=== PATIENT | female | born 1995 | race Caucasian/White ===

== ENCOUNTER 2017-04-02 12:52 | Emergency (ER) | payer BC ==
[~2017-04-02] VITALS: Ht 160 cm; Wt 41.0 kg
[2017-04-02 12:58] VITALS: Ht 160 cm; Wt 41.0 kg
[2017-04-02] MEDS ORDERED: SOD CHLORIDE 0.9% 500 ML IV STA (14:00)
[2017-04-02 14:28] LABS: ADD SCAN DIFF NO
[2017-04-02 14:31] LABS: ABNORMAL IP MESSAGE 1; HEMATOCRIT 34.3 % (37.0-47.0); HEMOGLOBIN 12.2 g/dl (12.0-16.0); MEAN CORPUSCULAR HEMOGLOBIN 31.4 pg (29.0-33.0); MEAN CORPUSCULAR HGB CONC 35.6 g/dl (32.0-37.0); MEAN CORPUSCULAR VOLUME 88.4 fl (82.0-101.0); MEAN PLATELET VOLUME 9.5 fl (7.4-10.4); PLATELET COUNT 301 10^3/UL (140-415); RED BLOOD COUNT 3.88 10^6/ul (4.20-5.40); RED CELL DISTRIBUTION WIDTH 12.4 % (11.5-14.5)
[2017-04-02 14:55] LABS: ADD UMIC NO; URINE BILIRUBIN (Dip) NEGATIVE (NEGATIVE); URINE BLOOD (Dip) NEGATIVE (NEGATIVE); URINE COLOR LT. YELLOW (YELLOW); URINE GLUCOSE (Dip) NEGATIVE (NEGATIVE); URINE KETONES (Dip) NEGATIVE (NEGATIVE); URINE LEUKOCYTE ESTERASE (Dip) NEGATIVE (NEGATIVE); URINE NITRITE (Dip) NEGATIVE (NEGATIVE); URINE TOTAL PROTEIN (Dip) NEGATIVE (NEGATIVE); URINE UROBILINOGEN (Dip) 0.2 E.U./dL (0.1-1.0)
[2017-04-02] MEDS ORDERED: ONDANSETRON 4 MG INJ IV STA (14:58)
[2017-04-02 15:16] LABS: POTASSIUM 3.6 mmol/L (3.5-5.1)
[2017-04-02 15:18] LABS: CREATININE 0.59 mg/dl (0.44-1.00)
[2017-04-02 15:19] LABS: CALCIUM 9.4 mg/dl (8.4-10.2)
--- NOTE | 2017-04-02 15:23 | ERA ---
ER Documentation Chief Complaint Date/Time DATE: 04/02/17 TIME: 15:22 Chief Complaint HYPOGLYCEMIA SHAKEY FEELING WEAK HPI 21-year-old female who presents emergency room with hypoglycemia. She is an insulin-dependent diabetic. She states that she has been moving recently and has not been eating on a regular basis. She took her Lantus at around 11 AM. Shortly after she started to feel shaky. Accu-Chek at home was in the 30s. She took glucagon and then vomited. The patient has an Accu-Chek of 60 upon arrival. Recently she denies any fevers chills or illness. She does describe generalized weakness. No dysuria urgency or frequency. She denies headache, rash or neck stiffness. ROS All systems reviewed and are negative except as per history of present illness. Medications Home Meds Active Scripts Ondansetron (Ondansetron Odt) 4 Mg Tab.rapdis, 4 MG PO Q6H Y for NAUSEA AND/OR VOMITING, #10 TAB Prov:FOUZIA NIX MD 04/02/17 Allergies Allergies: Coded Allergies: No Known Allergy (Unverified , 04/02/17) PMhx/Soc History of Surgery: No Anesthesia Reaction: No Hx Neurological Disorder: No Hx Respiratory Disorders: No Hx Cardiac Disorders: No Hx Psychiatric Problems: No Hx Miscellaneous Medical Probl: Yes (DM) Hx Alcohol Use: No Hx Substance Use: No Hx Tobacco Use: No Smoking Status: Never smoker FmHx Family History: diabetes Physical Exam Vitals Vital Signs Date Time Temp Pulse Resp B/P Pulse Ox O2 Delivery O2 Flow Rate FiO2 04/02/17 18:15 98.1 75 18 102/65 100 Room Air 04/02/17 14:42 98.4 91 18 96/72 100 Room Air 04/02/17 12:58 97.3 130 20 124/77 100 Physical Exam General: Well developed, well nourished, no acute distress Head: Normocephalic, atraumatic. Eyes: Pupils equally reactive, EOM intact ENT: Moist mucous membranes Neck: Supple, no lymphadenopathy Respiratory: Lungs clear bilaterally, no distress Cardiovascular: RRR, no murmurs, rubs, or gallops Abdominal: Soft, non-tender, non-distended, no peritoneal signs : Deferred MSK: No edema, no unilateral swelling, 5/5 strength Neurologic: Alert and oriented, moving all extremities, normal speech, no focal weakness, no cerebellar signs, no meningismus Skin: No rash Psych: Normal mood Result Diagram: 04/02/17 1700 04/02/17 1400 Results 24 hrs Laboratory Tests Test 04/02/17 12:57 04/02/17 14:00 04/02/17 14:20 04/02/17 14:24 Bedside Glucose 61mg/dL 143mg/dL White Blood Count 25.910^3/ul Red Blood Count 3.8810^6/ul Hemoglobin 12.2g/dl Hematocrit 34.3% Mean Corpuscular Volume 88.4fl Mean Corpuscular Hemoglobin 31.4pg Mean Corpuscular Hemoglobin Concent 35.6g/dl Red Cell Distribution Width 12.4% Platelet Count 28233^3/UL Mean Platelet Volume 9.5fl Neutrophils % 84.0% Band Neutrophils % 6.0% Lymphocytes % 3.0% Monocytes % 7.0% Nucleated Red Blood Cells % 1.0/100WBC Neutrophils # 23.310^3/ul Lymphocytes # 2.610^3/ul Platelet Estimate PLT APPEAR ADEQUATE Sodium Level 142mmol/L Potassium Level 3.6mmol/L Chloride Level 103mmol/L Carbon Dioxide Level 25mmol/L Anion Gap 18 Blood Urea Nitrogen 16mg/dl Creatinine 0.59mg/dl Glucose Level 121mg/dl Calcium Level 9.4mg/dl Serum HCG, Qualitative NEGATIVE Urine Color LT. YELLOW Urine Clarity CLEAR Urine pH 5.5 Urine Specific [place] <=1.005 Urine Ketones NEGATIVE Urine Nitrite NEGATIVE Urine Bilirubin NEGATIVE Urine Urobilinogen 0.2 E.U./dL Urine Leukocyte Esterase NEGATIVE Urine Hemoglobin NEGATIVE Urine Glucose NEGATIVE% Urine Total Protein NEGATIVE Test 04/02/17 15:40 04/02/17 17:00 04/02/17 17:20 Lactic Acid Level 1.6mmol/L 1.1mmol/L White Blood Count 18.310^3/ul Red Blood Count 3.7910^6/ul Hemoglobin 11.5g/dl Hematocrit 33.7% Mean Corpuscular Volume 88.9fl Mean Corpuscular Hemoglobin 30.3pg Mean Corpuscular Hemoglobin Concent 34.1g/dl Red Cell Distribution Width 12.7% Platelet Count 69199^3/UL Mean Platelet Volume 10.1fl Neutrophils % 89.1% Lymphocytes % 7.9% Monocytes % 2.5% Eosinophils % 0.1% Basophils % 0.2% Nucleated Red Blood Cells % 0.0/100WBC Neutrophils # 16.310^3/ul Lymphocytes # 1.410^3/ul Monocytes # 0.510^3/ul Eosinophils # 0.010^3/ul Basophils # 0.010^3/ul Nucleated Red Blood Cells # 0.010^3/ul Current Medications Medications (Trade) Dose Ordered Sig/Bushra Route PRN Reason Start Time Stop Time Status Last Admin Dose Admin Sodium Chloride (NS) 500 ml @ 500 mls/hr Q1H STAT IV 04/02/17 14:00 04/02/17 14:59 DC 04/02/17 14:13 Ondansetron HCl (Zofran Inj) 4 mg ONCE STAT IV 04/02/17 14:58 04/02/17 14:59 DC 04/02/17 15:03 Sodium Chloride (NS) 1,270 ml BOLUS OVER 2 HOURS STAT IV* 04/02/17 15:24 04/02/17 15:28 DC 04/02/17 15:44 Procedures/MDM EKG, MONITORS, & DIAGNOSTIC IMAGING: Chest x-ray: I reviewed and interpreted a 1 view of the chest Mediastinum: No enlargement Cardiac silhouette: No cardiomegaly Airspace: Clear lung [place] bilaterally without evidence of pneumothorax Bones: No evidence of fracture LAB INTERPRETATION: Leukocytosis that is improving. No anemia. Normal lactic acid, normal electrolytes, normal urinalysis, negative hCG MEDICAL DECISION MAKING: The patient presents with hypoglycemia likely secondary to poor complex carbohydrate intake. The patient does take long-acting insulin. The patient does report generalized fatigue and malaise, low concern for infectious process as the patient is extremely well-appearing in the emergency room. She does not have focal signs or symptoms. However, the patient wishes to have laboratory testing. ER COURSE: The patient has significant leukocytosis. This is possibly secondary to stress response given that the patient does not have any other signs of infectious process. However, given her diabetes I believe that further investigation was warranted. Blood cultures been taking, urinalysis is negative, lactic acid is normal, influenza is normal, chest x-ray is normal. She has no clinical signs of serious bacterial infection or meningitis. The patient was given fluids and a repeat CBC was sent. The patient's CBC shows improved WBC count. This is possibly related to the dehydration, hemoconcentration and/or stress response. I even spoke to a pathologist, Dr. Mcdaniel and he was kind enough to review the patient's blood on a slide. He states this is consistent with leukocytosis alone, no evidence of malignancy or hemolysis. No immature cells. At this time the patient's leukocytosis is isolated and improving. Given that it is isolated and the patient is otherwise extremely well-appearing in the emergency department with normal lactic acid I do not believe that inpatient hospitalization is required. Blood cultures been sent. This is possibly stress response versus viral process. I kept the patient and/or family informed of laboratory and diagnostic imaging results throughout the emergency room course. DISPOSITION PLAN: We discussed follow up with the patient's primary care doctor within 24 to 48 hours as needed. We also discussed return to the emergency room for worsening symptoms or worsening condition. Outpatient referral: [None required] Discharge Medications: Zofran Departure Diagnosis: Primary Impression: Hypoglycemia Additional Impression: Leukocytosis Qualified Code: D72.829 - Leukocytosis, unspecified type Condition: Stable FOUZIA NIX MD April 02, 2017 15:23
[2017-04-02] MEDS ORDERED: SODIUM CHLORIDE 0.9% 1L BAG IV* STA (15:24)
[2017-04-02 15:50] LABS: LYMPHOCYTES # 2.6 10^3/ul (0.8-2.9); NEUTROPHIL # 23.3 10^3/ul (1.6-7.5)
[2017-04-02 15:51] LABS: PLATELET ESTIMATE PLT APPEAR ADEQUATE
--- NOTE | 2017-04-02 16:18 | RADRPT ---
PROCEDURE: XR CHEST AP PORTABLE CLINICAL INDICATION: Weakness TECHNIQUE: Single frontal view of the chest COMPARISON: None. FINDINGS: The cardiomediastinal silhouette and pulmonary vasculature are normal. The lungs are clear. No consolidation, effusion, or pneumothorax. The osseous structures are unremarkable. IMPRESSION: No acute cardiopulmonary process. RPTAT:PP .Mil Trujillo MD, MD Date Time Electronically viewed and signed by .Mil Trujillo MD, on 04/02/2017 16:17 .V/
[2017-04-02 17:04] LABS: WHITE BLOOD COUNT 25.9 10^3/ul (4.8-10.8)
[2017-04-02 17:18] LABS: ADD SCAN DIFF NO
[2017-04-02 17:21] LABS: BASOPHILS % 0.2 % (0.0-2.0); EOSINOPHILS % 0.1 % (0.0-7.0); HEMATOCRIT 33.7 % (37.0-47.0); HEMOGLOBIN 11.5 g/dl (12.0-16.0); LYMPHOCYTES # 1.4 10^3/ul (0.8-2.9); LYMPHOCYTES % 7.9 % (15.0-51.0); MEAN CORPUSCULAR HEMOGLOBIN 30.3 pg (29.0-33.0); MEAN CORPUSCULAR HGB CONC 34.1 g/dl (32.0-37.0); MEAN CORPUSCULAR VOLUME 88.9 fl (82.0-101.0); MEAN PLATELET VOLUME 10.1 fl (7.4-10.4); MONOCYTE # 0.5 10^3/ul (0.3-0.9); MONOCYTES % 2.5 % (0.0-11.0); NEUTROPHIL # 16.3 10^3/ul (1.6-7.5); NEUTROPHILS % 89.1 % (39.0-77.0); PLATELET COUNT 277 10^3/UL (140-415); RED BLOOD COUNT 3.79 10^6/ul (4.20-5.40); RED CELL DISTRIBUTION WIDTH 12.7 % (11.5-14.5); WHITE BLOOD COUNT 18.3 10^3/ul (4.8-10.8)
[2017-04-02] MEDS ORDERED: ONDA4TAB14 PO (17:41)
[2017-04-02 18:15] VITALS: BP 102/65; PULSE 75; RESP 18; TEMP 98.1
== END 2017-04-02 18:25 | disposition home or self-care (01) ==
LOC: FTE 12:52
DX: E11.649 Type 2 diabetes mellitus with hypoglycemia without coma (principal); D72.829 Elevated white blood cell count, unspecified; R53.1 Weakness
CPT/HCPCS: 71010; 80048; 81003; 82962; 83605; 84703; 85025; 87040; 87086; 87400; J2405; J7030; J7040; 36415; 96374

== ENCOUNTER 2017-07-04 16:27 | Emergency (ER) | payer BC ==
[~2017-07-04] VITALS: Wt 40.0 kg
[~2017-07-04 16:27] MED LIST: ONDA4TAB14 PO
[2017-07-04] MEDS ORDERED: ONDANSETRON 4 MG INJ IV STA (16:51)
[2017-07-04] MEDS ORDERED: SOD CHLORIDE 0.9% 1,000 ML IV ONE (17:00)
--- NOTE | 2017-07-04 17:03 | ERD ---
ER Documentation Chief Complaint Date/Time DATE: 07/04/17 TIME: 17:00 Chief Complaint FEELING SHAKY WHILE SUGAR WAS LOW BS IN TRIAGE 168. NO NEURO DEFICIT HPI This is a 21-year-old female with past medical history for type 1 diabetes, presenting to the emergency department for low blood glucose and feeling shaky. Patient is a type 1 insulin-dependent diabetic and states she has been eating less than normal. Patient states blood sugar at home was 90s. Patient states she took 13 units of Lantus this morning and 2 units of Apidra with breakfast. Patient states she drank juice at home and continued to feel shaky. Patient states her most recent hemoglobin A1c is 9.2. Denies weakness. No chest pain, shortness breath or difficulty breathing. No dysuria, hematuria, urinary urgency or urinary frequency. Denies headache, neck stiffness or rash. Last menstrual period 04/26/2017. Patient states she has irregular menstrual periods. ROS All systems reviewed and are negative except as per history of present illness. Medications Home Meds Active Scripts Ondansetron (Ondansetron Odt) 4 Mg Tab.rapdis, 4 MG PO Q6H Y for NAUSEA AND/OR VOMITING, #10 TAB Prov:FOUZIA NIX MD 04/02/17 Allergies Allergies: Coded Allergies: No Known Allergy (Unverified , 07/04/17) PMhx/Soc Medical and Surgical Hx: pt denies Surgical Hx History of Surgery: No Anesthesia Reaction: No Hx Neurological Disorder: No Hx Respiratory Disorders: No Hx Cardiac Disorders: No Hx Psychiatric Problems: No Hx Miscellaneous Medical Probl: Yes (DM) Hx Alcohol Use: No Hx Substance Use: No Hx Tobacco Use: No Smoking Status: Never smoker Physical Exam Vitals Vital Signs Date Time Temp Pulse Resp B/P Pulse Ox O2 Delivery O2 Flow Rate FiO2 07/04/17 19:13 98.5 105 16 102/64 99 Room Air 07/04/17 16:29 98.6 85 20 131/85 99 Physical Exam Const: No acute distress, alert, anxious Head: Atraumatic Eyes: Normal Conjunctiva ENT: Normal External Ears, Nose and Mouth. Neck: Full range of motion..~ No meningismus. Resp: Clear to auscultation bilaterally Cardio: Regular rate and rhythm, no murmurs Abd: Soft, non tender, non distended. Normal bowel sounds Skin: No petechiae or rashes Back: No midline or flank tenderness Ext: No cyanosis, or edema Neur: Awake and alert Psych: Normal Mood and Affect Result Diagram: 07/04/17 1715 07/04/17 1715 Results 24 hrs Laboratory Tests Test 07/04/17 16:37 07/04/17 17:15 07/04/17 17:35 Bedside Glucose 168mg/dL White Blood Count 13.110^3/ul Red Blood Count 3.9210^6/ul Hemoglobin 12.3g/dl Hematocrit 34.5% Mean Corpuscular Volume 88.0fl Mean Corpuscular Hemoglobin 31.4pg Mean Corpuscular Hemoglobin Concent 35.7g/dl Red Cell Distribution Width 12.2% Platelet Count 52291^3/UL Mean Platelet Volume 10.1fl Neutrophils % 81.1% Lymphocytes % 13.1% Monocytes % 4.6% Eosinophils % 0.6% Basophils % 0.4% Nucleated Red Blood Cells % 0.0/100WBC Neutrophils # 10.610^3/ul Lymphocytes # 1.710^3/ul Monocytes # 0.610^3/ul Eosinophils # 0.110^3/ul Basophils # 0.110^3/ul Nucleated Red Blood Cells # 0.010^3/ul Sodium Level 149mmol/L Potassium Level 3.1mmol/L Chloride Level 91mmol/L Carbon Dioxide Level 18mmol/L Anion Gap 43 Blood Urea Nitrogen 15mg/dl Creatinine 0.55mg/dl Glucose Level 214mg/dl Calcium Level 6.0mg/dl Bedside Urine pH (LAB) 6.0 Bedside Urine Protein (LAB) Negative Bedside Urine Glucose (UA) 0.50% Bedside Urine Ketones (LAB) Negative Bedside Urine Blood Negative Bedside Urine Nitrite (LAB) Negative Bedside Urine Leukocyte Esterase (L Negative Current Medications Medications (Trade) Dose Ordered Sig/Bushra Route PRN Reason Start Time Stop Time Status Last Admin Dose Admin Sodium Chloride (NS) 1,000 ml @ 1,000 mls/hr Q1H ONCE IV 07/04/17 17:00 07/04/17 17:59 DC 07/04/17 17:22 Ondansetron HCl (Zofran Inj) 4 mg ONCE STAT IV 07/04/17 16:51 07/04/17 16:55 DC 07/04/17 17:20 Potassium Chloride (Klor-Con 20) 40 meq ONCE STAT PO 07/04/17 18:56 07/04/17 18:57 DC 07/04/17 19:07 Procedures/MDM MDM: This is a 21-year-old female presenting to emergency department for feeling shaky with low blood glucose. Patient states she is a type I diabetic and uses Lantus and Apidra. Patient took 13 units of Lantus and 2 units of Apidra with breakfast. Patient states she began to feel shaky and checked her blood glucose which was 90. Patient states she is feeling nauseous however no vomiting. CBC, BMP, UA and urine ordered. IV access obtained per senior staff accountant. Patient given 1 L IV fluid bolus of normal saline. Patient also given Zofran 4 mg IV push. CBC shows no significant anemia or infection. BMP shows potassium 3.1, sodium 149, calcium 6.0. Patient given 40 mg K-DUR. Patient requesting crackers to eat. Patient eating and tolerating p.o. without difficulty. Patient states she is feeling much better. Consulted Dr. Watkins regarding this patient and we agree that patient is appropriate for outpatient management. Patient is stable for discharge home. Low suspicion for severe hypoglycemia or DKA. 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 Return to ED for any high fever, chest pain, difficulty breathing, shortness breath, wheezing, vomiting, diarrhea, abdominal pain or any new or worsening symptoms. Patient verbalizes understanding. All questions answered at discharge. Departure Diagnosis: Primary Impression: Hypoglycemia Condition: Stable SOLEDAD MCGINNIS NP Jul 04, 2017 17:03
[2017-07-04 17:26] LABS: BASOPHIL # 0.1 10^3/ul (0.0-0.1); BASOPHILS % 0.4 % (0.0-2.0); EOSINOPHILS # 0.1 10^3/ul (0.0-0.5); EOSINOPHILS % 0.6 % (0.0-7.0); HEMATOCRIT 34.5 % (37.0-47.0); HEMOGLOBIN 12.3 g/dl (12.0-16.0); LYMPHOCYTES # 1.7 10^3/ul (0.8-2.9); LYMPHOCYTES % 13.1 % (15.0-51.0); MEAN CORPUSCULAR HEMOGLOBIN 31.4 pg (29.0-33.0); MEAN CORPUSCULAR HGB CONC 35.7 g/dl (32.0-37.0); MEAN PLATELET VOLUME 10.1 fl (7.4-10.4); MONOCYTE # 0.6 10^3/ul (0.3-0.9); MONOCYTES % 4.6 % (0.0-11.0); NEUTROPHIL # 10.6 10^3/ul (1.6-7.5); NEUTROPHILS % 81.1 % (39.0-77.0); PLATELET COUNT 247 10^3/UL (140-415); RED BLOOD COUNT 3.92 10^6/ul (4.20-5.40); RED CELL DISTRIBUTION WIDTH 12.2 % (11.5-14.5); WHITE BLOOD COUNT 13.1 10^3/ul (4.8-10.8)
[2017-07-04 17:29] LABS: URINE BLOOD (Dip) POC Negative (NEGATIVE)
[2017-07-04 17:48] LABS: CREATININE 0.55 mg/dl (0.44-1.00); POTASSIUM 3.1 mmol/L (3.5-5.1)
[2017-07-04] MEDS ORDERED: POTASSIUM CHLORIDE (SR) 20 MEQ TAB PO STA (18:56)
[2017-07-04 19:13] VITALS: BP 102/64; PULSE 105; RESP 16; TEMP 98.5
== END 2017-07-04 19:15 | disposition home or self-care (01) ==
LOC: FTE 16:27
DX: E10.65 Type 1 diabetes mellitus with hyperglycemia (principal); Z79.4 Long term (current) use of insulin
CPT/HCPCS: 80048; 81003; 82962; 85025; 96374; 99284; J2405; J7030; Z7610

== ENCOUNTER 2018-10-08 13:19 | Day surgery (SDC) | END 2018-10-08 16:27 | disposition home or self-care (01) ==